=== PATIENT | female | born 1990 | race Caucasian/White ===

== ENCOUNTER 2016-11-29 04:08 | Emergency (ER) | payer OTHER ==
[~2016-11-29 04:08] MED LIST: CLIN1CAP6 PO; DOXY100T PO; MEDR4PAK3 PO; RANI150 PO
[2016-11-29 04:11] VITALS: BP 124/86; PULSE 72; RESP 16; TEMP 98.1; O2SAT 98
[2016-11-29 04:24] VITALS: TEMP 98.3
[2016-11-29] MEDS ORDERED: LISD20CA PO (04:32)
[2016-11-29] MEDS ORDERED: BIRTH CONTROL PO (04:32)
[2016-11-29] MEDS ORDERED: SODIUM CHLOR 0.9% 1000 ML INJ 1,000 ML IV ONE (04:45)
[2016-11-29] MEDS ORDERED: METOCLOPRAMIDE HCL 10 MG/2 ML VIAL IV PUSH ONE (04:45)
[2016-11-29] MEDS ORDERED: diphenhydrAMINE HCL 50 MG/ML VIAL IV PUSH ONE (04:45)
[2016-11-29 04:56] VITALS: BP 135/100; PULSE 104; RESP 24; O2SAT 100
--- NOTE | 2016-11-29 05:25 | PD ---
HPI Chief Complaint: GI Complaint Time Seen by Provider: 04:36 Travel History International Travel<30 days: No Contact w/Intl Traveler<30days: No Traveled to known affect area: No History of Present Illness HPI 26-year-old white female presents emergency Department with complaints of upper abdominal pain for the past 1-2 days. She states that she's had associated nausea but no vomiting. She states the pain is cramping in nature and comes and goes. The last minutes to hours at times. She cannot recall any provocative activity. There is no palliative activity. It is unaffected by eating. She denies any lower abdominal pain. No vaginal complaints. No urinary symptoms. Denies any fever or chills. No cough, congestion. Patient states that she has had abdominal pain in the past with diarrhea from C. difficile but this was when she was 17 years old. Last menstrual. 3 weeks ago and normal. She does smoke. PFSH Past Medical History Narrative Medical C. difficile Immunizations Current: No Tetanus Vaccination: < 5 Years ?: Not LMP: "ALMOST A MONTH AGO" Past Surgical History Surgical History: No Previous Surgery Social History Alcohol Use: Yes (OCC) Tobacco Use: No Substance Use: Yes (HX OF MARIJUANA) Allergies-Medications (Allergen,Severity, Reaction): Coded Allergies: diatrizoate meglumine (Unverified Allergy, Severe, THROAT SWELLING, ) gadobenic acid (Unverified Allergy, Severe, THROAT SWELLING, 11/29/16) gadodiamide (Unverified Allergy, Severe, THROAT SWELLING, 11/29/16) gadoteridol (Unverified Allergy, Severe, THROAT SWELLING, 11/29/16) iodixanol (Unverified Allergy, Severe, THROAT SWELLING, 11/29/16) iohexol (Unverified Allergy, Severe, THROAT SWELLING, 11/29/16) Penicillins (Verified Allergy, Unknown, UNK, 11/29/16) Reported Meds & Prescriptions Reported Meds & Active Scripts Active Levsin-SL (Hyoscyamine Sulfate) 0.125 Mg Subl 0.25 Mg SL Q6H Zofran Odt (Ondansetron Odt) 4 Mg Tab 4 Mg SL Q6HR PRN Reported [ Control] 1 Tab PO DAILY Vyvanse (Lisdexamfetamine Dimesylate) 20 Mg Cap 20 Mg PO DAILY Review of Systems Except as stated in HPI: all other systems reviewed are Neg Physical Exam Narrative GENERAL: Well-developed, well-nourished in no apparent distress. Nontoxic appearing. HEAD: Normocephalic, atraumatic. EYES: Pupils equal round and reactive. Extraocular motions intact. No scleral icterus. No injection or drainage. ENT: Nose clear. Throat without erythema, tonsillar hypertrophy or exudate. Uvula midline. Airway patent. NECK: Trachea midline. Supple, nontender, moves head freely. No central bony tenderness or spasm. CARDIOVASCULAR: Regular rate and rhythm without murmurs, gallops, or rubs. RESPIRATORY: Clear to auscultation. Breath sounds equal bilaterally. No wheezes , rales, or rhonchi. GASTROINTESTINAL: Abdomen soft, non-tender, nondistended. No hepato-splenomegaly , or palpable masses. No guarding. EXTREMITIES: No clubbing, cyanosis, or edema. No joint tenderness. BACK: Nontender without deformity. No flank tenderness. NEUROLOGICAL: Awake, alert and oriented x 3 .Cranial nerves grossly intact. Motor and sensory grossly within normal limits. Normal speech. Data Data Last Documented VS Vital Signs Date Time Temp Pulse Resp B/P (MAP) Pulse Ox O2 Delivery O2 Flow Rate FiO2 11/29/16 04:56 104 24 135/100 (112) 100 Nasal Cannula 2.00 11/29/16 04:24 98.3 Orders Orders Complete Blood Count With Diff (11/29/16 04:36) Comprehensive Metabolic Panel (11/29/16 04:36) Lipase (11/29/16 04:36) Urinalysis - C+S If Indicated (11/29/16 04:36) Ed Urine Pregnancytest Poc (11/29/16 04:36) Sodium Chlor 0.9% 1000 Ml Inj (Ns 1000 M (11/29/16 04:45) Diphenhydramine Inj (Benadryl Inj) (11/29/16 04:45) Metoclopramide Inj (Reglan Inj) (11/29/16 04:45) Labs Laboratory Tests Test 11/29/16 05:30 11/29/16 05:50 White Blood Count 10.1 TH/MM3 Red Blood Count 4.34 MIL/MM3 Hemoglobin 13.1 GM/DL Hematocrit 38.9 % Mean Corpuscular Volume 89.8 FL Mean Corpuscular Hemoglobin 30.2 PG Mean Corpuscular Hemoglobin Concent 33.7 % Red Cell Distribution Width 11.7 % Platelet Count 362 TH/MM3 Mean Platelet Volume 7.6 FL Neutrophils (%) (Auto) 46.1 % Lymphocytes (%) (Auto) 39.0 % Monocytes (%) (Auto) 10.4 % Eosinophils (%) (Auto) 3.6 % Basophils (%) (Auto) 0.9 % Neutrophils # (Auto) 4.7 TH/MM3 Lymphocytes # (Auto) 3.9 TH/MM3 Monocytes # (Auto) 1.1 TH/MM3 Eosinophils # (Auto) 0.4 TH/MM3 Basophils # (Auto) 0.1 TH/MM3 CBC Comment DIFF FINAL Differential Comment Blood Urea Nitrogen 11 MG/DL Creatinine 0.99 MG/DL Random Glucose 80 MG/DL Total Protein 8.1 GM/DL Albumin 3.9 GM/DL Calcium Level 9.0 MG/DL Alkaline Phosphatase 63 U/L Aspartate Amino Transf (AST/SGOT) 29 U/L Alanine Aminotransferase (ALT/SGPT) 24 U/L Total Bilirubin 0.5 MG/DL Sodium Level 140 MEQ/L Potassium Level 3.8 MEQ/L Chloride Level 107 MEQ/L Carbon Dioxide Level 23.1 MEQ/L Anion Gap 10 MEQ/L Estimat Glomerular Filtration Rate 69 ML/MIN Lipase 125 U/L MDM Medical Decision Making Medical Screen Exam Complete: Yes Emergency Medical Condition: Yes Medical Record Reviewed: Yes Interpretation(s) CBC & BMP Diagram 11/29/16 05:30 Total Protein 8.1, Albumin 3.9, Calcium Level 9.0, Alkaline Phosphatase 63, Aspartate Amino Transf (AST/SGOT) 29, Alanine Aminotransferase (ALT/SGPT) 24, Total Bilirubin 0.5 Differential Diagnosis Differential diagnoses: Nonspecific abdominal pain, gastritis, reflux, peptic ulcer disease, pancreatitis, Narrative Course IV access is obtained. Patient given a liter bolus saline, Benadryl 50 mg IV and Reglan 10 mg IV. Patient laboratory tests have been reviewed. The patient is feeling much better. This is abdominal pain nonspecific Diagnosis Primary Impression: Nonspecific abdominal pain Patient Instructions: General Instructions Additional Instructions: Rest. Increase fluids. Zofran for nausea. Levsin for abdominal cramping. Follow-up with a primary care doctor in the next 2-3 days. Return to the ER if any problems. Med/Other Pt SpecificInfo: Prescription(s) given Scripts Hyoscyamine Odt (Levsin-SL) 0.125 Mg Subl 0.25 MG SL Q6H for Gastrointestinal disorders, #20 TAB.SL 0 Refills Prov: Florinda Urena MD 11/29/16 Ondansetron Odt (Zofran Odt) 4 Mg Tab 4 MG SL Q6HR Y for Nausea/Vomiting, #10 TAB 0 Refills Prov: Florinda Urena MD 11/29/16 Disposition: 01 DISCHARGE HOME Condition: Stable Brian White Nov 29, 2016 05:25
[2016-11-29 06:02] LABS: AUTOMATED NEUTROPHIL # 4.7 TH/MM3 (1.8-7.7); BASOPHIL # 0.1 TH/MM3 (0-0.2); BASOPHIL % 0.9 % (0.0-2.0); EOSINOPHIL # 0.4 TH/MM3 (0-0.4); EOSINOPHIL % 3.6 % (0.0-4.0); HEMATOCRIT 38.9 % (35.0-46.0); HEMO FLAGS DIFF FINAL; LYMPHOCYTE # 3.9 TH/MM3 (1.0-4.8); MEAN CELL VOLUME 89.8 FL (80.0-100.0); MEAN CORPUSCULAR HEMOGLOBIN 30.2 PG (27.0-34.0); MEAN CORPUSCULAR HGB CONC 33.7 % (32.0-36.0); MONO % 10.4 % (0.0-8.0); NEUT % 46.1 % (16.0-70.0); PLATELET COUNT 362 TH/MM3 (150-450); RED BLOOD COUNT 4.34 MIL/MM3 (4.00-5.30); RED CELL DISTRIBUTION WIDTH 11.7 % (11.6-17.2); WHITE BLOOD COUNT 10.1 TH/MM3 (4.0-11.0)
[2016-11-29 06:27] LABS: ANION GAP 10 MEQ/L (5-15); AST (GOT) 29 U/L (15-37); BICARBONATE 23.1 MEQ/L (21.0-32.0); BLOOD UREA NITROGEN 11 MG/DL (7-18); CHLORIDE 107 MEQ/L (98-107); GLOMERULAR FILTRATION RATE 69 ML/MIN (>89); POTASSIUM 3.8 MEQ/L (3.5-5.1); SODIUM (NA) 140 MEQ/L (136-145)
[2016-11-29 06:28] LABS: ALT (GPT) 24 U/L (10-53)
[2016-11-29 06:30] LABS: ALKALINE PHOSPHATASE 63 U/L (45-117); TOTAL BILIRUBIN ADULT 0.5 MG/DL (0.2-1.0)
[2016-11-29 06:55] LABS: BLOOD, URINE NEG (NEG); COMMENT (UR) CULT NOT INDICATED; CULTURE IF INDICATED CULT NOT INDICATED; GLUCOSE,URINE NEG (NEG); KETONE, URINE NEG (NEG); MUCUS URINE FEW /lpf (OCC); NITRITE,URINE NEG (NEG); PH, URINE 5.5 (5.0-8.5); SQUAMOUS EPITHELIAL CELL URINE <1 /hpf (0-5); URINE COLOR YELLOW (YELLW/STRAW)
[2016-11-29] MEDS ORDERED: ZOFR4TAB3 SL (06:55)
[2016-11-29] MEDS ORDERED: LEVS0.124 SL (06:55)
== END 2016-11-29 07:06 | disposition home or self-care (01) ==
LOC: NEPC 04:08
DX: R10.10 Upper abdominal pain, unspecified (principal)
CPT/HCPCS: 80053; 81001; 83690; 84703; 85025; 96374; 96375; 99284; J1200; J2765; J7030